=== PATIENT | female | born 2000 | race Caucasian/White ===

== ENCOUNTER 2023-01-19 10:05 | Emergency (ER) | payer OTHER ==
[2023-01-19] MEDS ORDERED: IBUPROFEN 400 MG TAB ONE (10:36)
[2023-01-19] MEDS ORDERED: CYCLOBENZAPRINE 10 MG TAB ONE (10:37)
[2023-01-19] MEDS ORDERED: IBUPROFEN 200 MG TAB PO ONE (10:37)
--- NOTE | 2023-01-19 11:06 | RAD REPORT ---
EXAM DESCRIPTION: RAD - Sacrum And Coccyx - 01/19/2023 10:34 am CLINICAL HISTORY: PAIN COMPARISON: No comparisons FINDINGS/IMPRESSION: No acute fracture. No malalignment. No significant focal degenerative changes.
--- NOTE | 2023-01-19 11:07 | RAD REPORT ---
EXAM DESCRIPTION: RAD - Hip Right 2 View - 01/19/2023 10:34 am CLINICAL HISTORY: PAIN COMPARISON: No comparisons FINDINGS: No acute fracture. No malalignment. No significant focal degenerative changes. IMPRESSION: No acute osseous abnormality involving the right hip.
--- NOTE | 2023-01-19 11:18 | EDPHYS ---
Physician Documentation [facility] Name: April Sharpe Age: 22 yrs Sex: Female : 2000 Arrival Date: 01/19/2023 Time: 10:05 Bed 11 Private MD: ED Physician Antoine Watson HPI: 01/19 10:09 This 22 yrs old Female presents to ER via Ambulatory with complaints of Fall Injury, jh7 Hip Pain, Leg Pain. 10:09 Details of fall: The patient fell from an upright position, while walking. Onset: The jh7 symptoms/episode began/occurred yesterday. Associated injuries: The patient sustained right hip and glute, painful injury. 22-year-old female states that she slipped and fell by the pool yesterday. Complains of right hip and sacrum pain shooting down her right leg. Able to ambulate with no difficulties.. Historical: - Allergies: 10:09 Toradol; ll1 10:09 Trileptal; ll1 - PMHx: 10:09 None; ll1 - PSHx: 10:09 R ovarian cyst SX; ll1 - Immunization history:: Adult Immunizations up to date. - Social history:: Smoking status: Reported history of juuling and/or vaping. ROS: 10:09 Constitutional: Negative for fever, chills, and weight loss, Eyes: Negative for injury, jh7 pain, redness, and discharge, Neck: Negative for injury, pain, and swelling, Cardiovascular: Negative for chest pain, palpitations, and edema, Respiratory: Negative for shortness of breath, cough, wheezing, and pleuritic chest pain, Back: Negative for injury and pain, Skin: Negative for injury, rash, and discoloration, Neuro: Negative for headache, weakness, numbness, tingling, and seizure. 10:09 MS/extremity: Positive for pain, tenderness, of the Right hip and glute. 10:09 All other systems are negative. Exam: 10:09 Constitutional: This is a well developed, well nourished patient who is awake, alert, jh7 and in no acute distress. Head/Face: Normocephalic, atraumatic. Neck: Trachea midline, no thyromegaly or masses palpated, and no cervical lymphadenopathy. Supple, full range of motion without nuchal rigidity, or vertebral point tenderness. No Meningismus. Cardiovascular: Regular rate and rhythm with a normal S1 and S2. No gallops, murmurs, or rubs. Normal PMI, no JVD. No pulse deficits. Respiratory: Lungs have equal breath sounds bilaterally, clear to auscultation and percussion. No rales, rhonchi or wheezes noted. No increased work of breathing, no retractions or nasal flaring. Abdomen/GI: Soft, non-tender, with normal bowel sounds. No distension or tympany. No guarding or rebound. No evidence of tenderness throughout. Back: No spinal tenderness. No costovertebral tenderness. Full range of motion. Skin: Warm, dry with normal turgor. Normal color with no rashes, no lesions, and no evidence of cellulitis. Neuro: Awake and alert, GCS 15, oriented to person, place, time, and situation. Motor strength 5/5 in all extremities. Sensory grossly intact. Normal gait. 10:09 Musculoskeletal/extremity: ROM: intact in all extremities, full active range of motion, Circulation is intact in all extremities. Sensation intact. Mild tenderness noted over the right iliac crest radiating down right leg. No obvious bruising or swelling noted.. Vital Signs: 10:20 BP 143 / 91; Pulse 85; Resp 16; Temp 98.6; Pulse Ox 99% ; Weight 68.04 kg; Height 5 ft. ll1 3 in. ; Pain 7/10; 11:27 BP 108 / 68; Pulse 80; Resp 15; Pulse Ox 100% ; jl7 10:20 Body Mass Index 26.57 (68.04 kg, 160.02 cm) ll1 10:20 Pain Scale: Adult ll1 MDM: 10:09 Patient medically screened. [facility] 11:17 Differential diagnosis: contusion, fracture, sprain. Data reviewed: vital signs, nurses [facility] notes, radiologic studies, plain films. I considered the following discharge prescriptions or medication management in the emergency department Medications were administered in the Emergency Department. See MAR. Counseling: I had a detailed discussion with the patient and/or guardian regarding: the historical points, exam findings, and any diagnostic results supporting the discharge/admit diagnosis, to return to the emergency department if symptoms worsen or persist or if there are any questions or concerns that arise at home. Response to treatment: the patient's symptoms have markedly improved after treatment. 01/19 10:18 Order name: XRAY Hip RIGHT 2 view; Complete Time: 11:13 7 01/19 10:18 Order name: XRAY Sacrum And Coccyx; Complete Time: 11:13 7 Administered Medications: 10:42 Drug: Ibuprofen PO 600 mg Route: PO; ll1 11:28 Follow up: Response: No adverse reaction; Pain is decreased jl7 10:42 Drug: Cyclobenzaprine PO 10 mg Route: PO; ll1 11:27 Follow up: Response: No adverse reaction; Pain is decreased jl7 Disposition Summary: 01/19/23 11:17 Discharge Ordered Location: Home [facility] Problem: new [facility] Symptoms: have improved [facility] Condition: Stable [facility] Diagnosis - Contusion of right hip [facility] Followup: [facility] - With: Private Physician - When: 2 - 3 days - Reason: Recheck today's complaints Discharge Instructions: - Discharge Summary Sheet [facility] - Contusion [facility] - Fall Prevention in the Home, Adult [facility] - Hip Pain [facility] Forms: - Work release form eb - Medication Reconciliation Form [facility] - Thank You Letter [facility] Prescriptions: - Naprosyn 500 mg Oral Tablet - take 1 tablet by ORAL route 2 times per day take with food; 30 tablet; Refills: [facility] 0, Product Selection Permitted - Zanaflex 4 mg Oral Tablet - take 1 tablet by ORAL route every 8 hours As needed; 20 tablet; Refills: 0, jh7 Product Selection Permitted Signatures: Dispatcher [employer] Ayan Gordon RN RN 1 Bridget Ruiz FNP FNP [facility] Curt Roberts RN jl7
--- NOTE | 2023-01-19 11:18 | ER ---
Nurse's Notes [facility] Name: April Sharpe Age: 22 yrs Sex: Female : 2000 Arrival Date: 01/19/2023 Time: 10:05 Bed 11 Private MD: Diagnosis: Contusion of right hip Presentation: 01/19 10:20 Chief complaint: Patient states: Slipped while getting into the pool yesterday around 2 ll1 PM. Coronavirus screen: Vaccine status: Patient reports receiving the 2nd dose of the covid vaccine. Client denies travel out of the [place] in the last 14 days. At this time, the client does not indicate any symptoms associated with coronavirus-19. Ebola Screen: Patient denies travel to an Ebola-affected area in the 21 days before illness onset. Initial Sepsis Screen: Does the patient meet any 2 criteria? No. Patient's initial sepsis screen is negative. Does the patient have a suspected source of infection? No. Patient's initial sepsis screen is negative. Risk Assessment: Do you want to hurt yourself or someone else? Patient reports no desire to harm self or others. Onset of symptoms was January 18, 2023. 10:20 Method Of Arrival: Ambulatory ll1 10:20 Acuity: MICHAEL 4 ll1 Historical: - Allergies: 10:09 Toradol; ll1 10:09 Trileptal; ll1 - PMHx: 10:09 None; ll1 - PSHx: 10:09 R ovarian cyst SX; ll1 - Immunization history:: Adult Immunizations up to date. - Social history:: Smoking status: Reported history of juuling and/or vaping. Screenin:27 [facility] ED Fall Risk Assessment (Adult) History of falling in the last 3 months, jl7 including since admission Yes- single mechanical fall (1 pt) Score/Fall Risk Level 0 - 2 = Low Risk Oriented to surroundings, Maintained a safe environment. Abuse screen: Denies threats or abuse. Denies injuries from another. Nutritional screening: No deficits noted. Tuberculosis screening: No symptoms or risk factors identified. Assessment: 10:42 Reassessment: No changes from previously documented assessment. Patient and/or family ll1 updated on plan of care and expected duration. Pain level reassessed. Patient is alert, oriented x 3, equal unlabored respirations, skin warm/dry/pink. Vital Signs: 10:20 BP 143 / 91; Pulse 85; Resp 16; Temp 98.6; Pulse Ox 99% ; Weight 68.04 kg; Height 5 ft. ll1 3 in. ; Pain 7/10; 11:27 BP 108 / 68; Pulse 80; Resp 15; Pulse Ox 100% ; jl7 10:20 Body Mass Index 26.57 (68.04 kg, 160.02 cm) ll1 10:20 Pain Scale: Adult 1 ED Course: 10:08 Patient arrived in ED. mr 10:09 Bridget Ruiz[facility] jh7 10:09 Antoine Watson MD is Attending Physician. jh7 10:12 Arm band placed on Patient placed in an exam room, on a stretcher. ll1 10:21 Triage completed. ll1 10:23 Ayan Heredia, YOSVANY is Primary Nurse. ll1 10:35 XRAY Hip RIGHT 2 view In Process Unspecified. EDMS 10:35 XRAY Sacrum And Coccyx In Process Unspecified. EDMS 11:27 Patient has correct armband on for positive identification. jl7 11:27 No provider procedures requiring assistance completed. Patient did not have IV access jl7 during this emergency room visit. Administered Medications: 10:42 Drug: Ibuprofen PO 600 mg Route: PO; 1 11:28 Follow up: Response: No adverse reaction; Pain is decreased jl7 10:42 Drug: Cyclobenzaprine PO 10 mg Route: PO; ll1 11:27 Follow up: Response: No adverse reaction; Pain is decreased jl7 Medication: 11:27 VIS not applicable for this client. jl7 Outcome: 11:17 Discharge ordered by . jh7 11:27 Discharged to home ambulatory. jl7 11:27 Condition: stable 11:27 Discharge instructions given to patient, Instructed on discharge instructions, follow up and referral plans. medication usage, Demonstrated understanding of instructions, follow-up care, medications, Prescriptions given X 2. 11:28 Patient left the ED. jl7 Signatures: Dispatcher [employer] EDOH Junior Miguelina RobertsCurt RN RN jl7 Ayan Heredia RN RN 1 Bridget Ruiz FNP [employer] [facility]
[2023-01-19 11:35] VITALS: TEMP 98.6
[2023-01-19 11:36] VITALS: BP 108/68; O2SAT 100
== END 2023-01-19 11:28 | disposition home or self-care (01) ==
LOC: ER 10:05
DX: S70.01XA Contusion of right hip, initial encounter (principal); Z88.5 Allergy status to narcotic agent; Z88.8 Allergy status to other drugs, medicaments and biological substances
CPT/HCPCS: 72220; 99283

== ENCOUNTER 2023-03-05 18:30 | Emergency (ER) | payer OTHER ==
--- NOTE | 2023-03-05 19:28 | EDPHYS ---
Physician Documentation [facility] Name: April Sharpe Age: 22 yrs Sex: Female : 2000 Arrival Date: 03/05/2023 Time: 18:30 Bed 13 Private MD: ED Physician Prince Escobar HPI: 03/05 19:25 This 22 yrs old Female presents to ER via Ambulatory with complaints of Rectal rn Bleeding, Rectal Pain. 19:25 The patient presents to the emergency department with bleeding from the rectum/anus, rn that is mild. Onset: The symptoms/episode began/occurred 1 year(s) ago. Modifying factors: The symptoms are alleviated by nothing, The symptoms are aggravated by bowel movement. Associate signs and symptoms: Pertinent positives: lower GI bleeding, Pertinent negatives: abdominal pain, fever. The patient has experienced similar episodes in the past. Pt reports light rectal bleeding and pain since 1 year ago. Spots when wipes and some discomfort, but goes away. NO abd pain. No fever. No trauma. . 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 - Social history:: Smoking status: Reported history of juuling and/or vaping. - Family history:: not pertinent. - Hospitalizations: : No recent hospitalization is reported. ROS: 19:25 Constitutional: Negative for fever, chills, and weight loss, Cardiovascular: Negative rn for chest pain, palpitations, and edema, Abdomen/GI: Negative for abdominal pain, nausea, vomiting, diarrhea, and constipation, + rectal bleeding Exam: 19:25 Constitutional: This is a well developed, well nourished patient who is awake, alert, rn and in no acute distress. Abdomen/GI: + external hemorrhoid, no active bleeding, no perianal swelling or open wounds Vital Signs: 18:52 BP 143 / 90; Pulse 101; Resp 18 S; Temp 97.1(TE); Pulse Ox 100% on R/A; aa5 MDM: 18:51 Patient medically screened. rn 19:25 Differential diagnosis: hemorrhoids. Differential diagnosis: fissure. Data reviewed: rn vital signs. Data reviewed: nurses notes, and as a result, I will discharge patient. Counseling: I had a detailed discussion with the patient and/or guardian regarding: the historical points, exam findings, and any diagnostic results supporting the discharge/admit diagnosis, the need for outpatient follow up, to return to the emergency department if symptoms worsen or persist or if there are any questions or concerns that arise at home. Special discussion: I discussed with the patient/guardian in detail that at this point there is no indication for admission to the hospital. It is understood, however, that if the symptoms persist or worsen the patient needs to return immediately for re-evaluation. Administered Medications: No medications were administered Disposition Summary: 03/05/23 19:27 Discharge Ordered Location: Home rn Problem: an ongoing problem rn Symptoms: are unchanged rn Condition: Stable rn Diagnosis - Other hemorrhoids rn Followup: rn - With: Private Physician - When: As needed - Reason: Recheck today's complaints, Re-evaluation by your physician Discharge Instructions: - Discharge Summary Sheet rn - High-Fiber Eating Plan rn - Hemorrhoids rn Forms: - Medication Reconciliation Form rn - Thank You Letter rn - Antibiotic ornamental iron erector - Prescription Opioid Use rn - Patient Portal Instructions rn Prescriptions: - Anusol-HC 2.5 % Topical cream with perineal applicator - apply 1 application by RECTAL route daily as needed for hemorrhoids; 1 packet; rn Refills: 0, Product Selection Permitted Signatures: Prince Escobar MD MD rn Calderon, Audri, RN RN aa5
--- NOTE | 2023-03-05 19:28 | ER ---
Nurse's Notes [facility] Name: April Sharpe Age: 22 yrs Sex: Female : 2000 Arrival Date: 03/05/2023 Time: 18:30 Bed 13 Private MD: Diagnosis: Other hemorrhoids Presentation: 03/05 18:52 Chief complaint: Patient states: "I've had blood when I poop for about a year now but aa5 today it bleed more than it normally does and I had pain". pt reports rectal pain. Coronavirus screen: At this time, the client does not indicate any symptoms associated with coronavirus-19. Ebola Screen: Patient denies travel to an Ebola-affected area in the 21 days before illness onset. Initial Sepsis Screen: Does the patient meet any 2 criteria? HR > 90 bpm. Does the patient have a suspected source of infection? No. Patient's initial sepsis screen is negative. Risk Assessment: Do you want to hurt yourself or someone else? Patient reports no desire to harm self or others. Onset of symptoms was 2021. 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 - Social history:: Smoking status: Reported history of juuling and/or vaping. - Family history:: not pertinent. - Hospitalizations: : No recent hospitalization is reported. Screenin:[address] [facility] ED Fall Risk Assessment (Adult) History of falling in the last 3 months, cm10 including since admission No falls in past 3 months (0 pts) Confusion or Disorientation No (0 pts) Intoxicated or Sedated No (0 pts) Impaired Gait No (0 pts) Mobility Assist Device Used No (0 pt) Altered Elimination No (0 pt) Score/Fall Risk Level 0 - 2 = Low Risk Oriented to surroundings, Maintained a safe environment. Abuse screen: Denies threats or abuse. Denies injuries from another. Nutritional screening: No deficits noted. Tuberculosis screening: No symptoms or risk factors identified. Assessment: 19:29 General: Appears in no apparent distress. comfortable, Behavior is calm, cooperative. cm10 Pain: Denies pain. Neuro: No deficits noted. Level of Consciousness is awake, alert, Oriented to person, place, time, situation. Cardiovascular: No deficits noted. Capillary refill < 3 seconds. Respiratory: No deficits noted. Airway is patent Respiratory effort is even, unlabored, Respiratory pattern is regular, symmetrical. GI: Reports hemorrhoids. Vital Signs: 18:52 BP 143 / 90; Pulse 101; Resp 18 S; Temp 97.1(TE); Pulse Ox 100% on R/A; aa5 ED Course: 18:32 Patient arrived in ED. am2 18:50 Prince Escobar MD is Attending Physician. rn 18:52 Arm band placed on. aa5 18:54 Triage completed. aa5 19:03 Echo Gallo, RN is Primary Nurse. 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 cm10 19:29 Patient did not have IV access during this emergency room visit. cm10 19:30 Patient has correct armband on for positive identification. Placed in gown. Call light cm10 in reach. Provided Education on: N/A. Administered Medications: No medications were administered Medication: 19:31 VIS not applicable for this client. cm10 Outcome: 19:27 Discharge ordered by . rn 19:31 Discharged to home ambulatory. cm10 19:31 Condition: good 19:31 Discharge instructions given to patient, Instructed on discharge instructions, follow up and referral plans. medication usage, Demonstrated understanding of instructions, follow-up care, medications, Prescriptions given X 1. 19:35 Patient left the ED. cm10 Signatures: Prince Escobar MD MD rn Calderon, Audri, RN RN aa5 Mariana Aguilar am2 Echo Gallo RN RN cm10
[2023-03-05 20:17] VITALS: BP 143/90; TEMP 97.1; O2SAT 100
== END 2023-03-05 19:35 | disposition home or self-care (01) ==
LOC: ER 18:30
DX: K64.8 Other hemorrhoids (principal); Z88.5 Allergy status to narcotic agent; Z88.8 Allergy status to other drugs, medicaments and biological substances

== ENCOUNTER → 2023-11-08 | Emergency (ER) | payer OTHER ==
[~2023-11-08] MED LIST: NA CHLORIDE 0.9% 1,000 ML ONE
--- OUTSIDE RECORDS SUMMARY | 2023-11-08 19:50 | XMS REPORT | Continuity of Care Document ---
Author Name Unknown Address [address] [facility] [address] [place] [address] [facility] thconnect Address [address] [facility] 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 Name Role Phone Dwain Henao Primary Care Physician [phone] KIARRA KURTZ Attending Clinician Unavailable Kiarra Kurtz MD Attending Clinician [phone] Gregorio Lambert MD Attending Clinician [phone] GREGORIO LAMBERT Attending Clinician Unavaileugene e GREGORIO LAMBERT Attending Clinician Unavailabl e Payers Payer Name Policy Type Policy Number Effective Date Expirati on Date Source Allergies, Adverse Reactions, Alerts Allergy Name Allergy Type Status Severity Reaction(s) Onset Date Inactive Date Treating Clinician Comments Source NO KNOWN ALLERGIE S Drug Class Active [facility] Social History Social Habit Start Date Stop Date Quantity Comments Source History of tobacco use Cigarette Smoker [facility] Tobacco use and exposure 2023-10-17 00:00:00 2023-10-17 00:00:00 Smokeless tobacco non-user [facility] Alcohol intake 2023-10-17 00:00:00 2023-10-17 00:00:00 Ex-drinker (finding) [facility] History of Social function 2023-10-17 00:00:00 2023-10-17 00:00:00 [facility] Sex Assigned At 2000 00:00:00 2000 00:00:00 [facility] Smoking Status Start Date Stop Date Source Tobacco smoking consumption unknown [facility] Ex-smoker 2023-10-17 00:00:00 2023-10-17 00:00:00 [facility] Medications Ordered Medication Name Filled Medication Name Start Date Stop Date Current Medication? Ordering Clinician Indication Dosage Frequency Signature (SIG) Comments Components Source diclofenac 75 mg EC tablet 08-22 00:00: 00 Yes [id number] 4109 75mg Take 1 tablet by mouth in the morning and 1 tablet in the evening. Take with meals. [facility] diclofenac 75 mg EC tablet 08-22 00:00: 00 Yes [id number] 4109 75mg Take 1 tablet by mouth in the morning and 1 tablet in the evening. Take with meals. [facility] diclofenac 75 mg EC tablet 08-22 00:00: 00 Yes [id number] 4109 75mg Take 1 tablet by mouth in the morning and 1 tablet in the evening. Take with meals. [facility] diclofenac 75 mg EC tablet 08-22 00:00: 00 Yes [id number] 4109 75mg Take 1 tablet by mouth in the morning and 1 tablet in the evening. Take with meals. [facility] diclofenac 75 mg EC tablet 08-22 00:00: 00 Yes [id number] 4109 75mg Take 1 tablet by mouth in the morning and 1 tablet in the evening. Take with meals. [facility] diclofenac 75 mg EC tablet 08-22 00:00: 00 Yes [id number] 4109 75mg Take 1 tablet by mouth in the morning and 1 tablet in the evening. Take with meals. [facility] DULoxetine 20 mg capsule 08-21 00:00: 00 Yes [facility] prazosin 1 mg capsule 08-21 00:00: 00 Yes [facility] DULoxetine 20 mg capsule 08-21 00:00: 00 Yes [facility] prazosin 1 mg capsule 0 08-21 00:00: 00 Yes [facility] DULoxetine 20 mg capsule 08-21 00:00: 00 Yes [facility] prazosin 1 mg capsule 2023-0 - 00:00: 00 Yes [facility] DULoxetine 20 mg capsule 0 - 00:00: 00 Yes [facility] prazosin 1 mg capsule 2023-0 08-21 00:00: 00 Yes [facility] DULoxetine 20 mg capsule 2023-0 08-21 00:00: 00 Yes [facility] prazosin 1 mg capsule 2023-0 08-21 00:00: 00 Yes [facility] DULoxetine 20 mg capsule 2023-0 08-21 00:00: 00 Yes [facility] prazosin 1 mg capsule 0 08-21 00:00: 00 Yes [facility] Vital Signs Vital Name Observation Time Observation Value Comments S emilia Body height 2023-10-17 19:06:00 162.6 cm [facility] Body height 2023-08-22 18:04:00 162.6 cm [facility] Body weight 2023-08-22 18:04:00 65.772 kg [facility] BMI 2023-08-22 18:04:00 24.89 kg/m2 [facility] Encounters Start Date/Time End Date/Time Encounter Type Admission Type Attending [facility] Care Facility Care Department Encounter ID Source 2023-11-06 09:43:05 2023-11-06 09:43:05 Outpatient [facility] SFA [id number] Madhu Clifford 2023-10-31 13:57:02 2023-10-31 13:57:02 Outpatient SFA SFA [id number] Madhu Clifford 2023-10-29 10:06:45 2023-10-29 10:06:45 Outpatient SFA SFA [id number] Madhu Clifford 2023-10-25 00:00:00 2023-10-25 00:00:00 Telephone Kiarra Kurtz [facility] [id number] [id number] [id number] [facility] 2023-10-22 10:10:49 2023-10-22 10:10:49 Outpatient SFA SFA [id number] Madhu Clifford 2023-10-17 13:30:00 2023-10-17 13:49:57 Outpatient R KIARRA KURTZ [facility] [id number] [facility] 2023-10-17 13:30:00 2023-10-17 13:49:57 [facility] [id number] [id number] [id number] [facility] 2023-10-15 10:09:39 2023-10-15 10:09:39 Outpatient SFA SFA [id number] Madhu Clifford 2023-10-10 09:53:42 2023-10-10 09:53:42 Outpatient SFA SFA [id number] Madhu Clifford 2023 10:18:33 2023 10:18:33 Outpatient SFA SFA [id number] Madhu Clifford 2023-10-03 16:47:39 2023-10-03 16:47:39 Outpatient SFA SFA [id number] Madhu Clifford 2023-10-01 10:03:39 2023-10-01 10:03:39 Outpatient SFA SFA [id number] Madhu Clifford 2023-09-18 15:55:24 2023-09-18 15:55:24 Outpatient SFA SFA [id number] Madhu Clifford 2023-09-17 10:05:10 2023-09-17 10:05:10 Outpatient SFA SFA [id number] Madhu Clifford 2023-09-12 07:59:20 2023-09-12 07:59:20 Outpatient SFA SFA [id number] Madhu Clifford 2023-08-22 12:04:19 2023-08-22 23:59:00 Hospital Encounter Gregorio Lambert [facility] [id number] [id number] [id number] [id number] [facility] 2023-08-22 11:45:00 2023-08-22 12:24:00 [facility] [id number] [id number] 4.2.7.2.686 [id number] [facility] 2023-08-22 11:45:00 2023-08-22 12:24:00 Outpatient R GREGORIO LAMBERT [facility] [id number] [facility] 2023-08-07 09:24:01 2023-08-07 09:24:01 Outpatient SFA SFA [id number] Madhu Clifford 2023-08-05 10:42:31 2023-08-05 10:42:31 Outpatient SFA SFA [id number] Madhu Clifford 2023-07-31 16:32:39 2023-07-31 16:32:39 Outpatient S[facility] [id number] Madhu Kristin Darrin Results Test Description Test Time Test Comments Results Result Co mments Source TSH, THIRD [id number] 05:14:45* Test Item Value Reference Range Interpretation Comme nts TSH, THIRD GENERATION (test code = 2821) 0.636 UIU/ML 0.400-4.100 UNLESS OTHERWISE INDICATED, ALL TESTING PERFORMED AT [facility] [address] [place] [address] SPORTS PHYSICIAN: KAILEY GRIMES M.D. CLIA NUMBER [id number] [facility] [place]. [id number] LIPID [id number] 05:03:30* Test Item Value Reference Range Interpretation Comme nts CHOLESTEROL (test code = 2210) 121 MG/DL <200 TRIGLYCERIDES (test code = 2232) 105 MG/DL <150 HDL CHOLESTEROL (test code = 2220) 47 MG/DL >39 CALC LDL CHOL (test code = 2237) 55 MG/DL <100 NOTE: CALCULATED LDL IS BASED ON JERRICA-GARCIA METHOD WHICHINCLUDES ADJUSTABLE TRIGLYCERIDE:VLDL CHOLESTEROL RATIO.THIS FACTOR VARIES BY MEASURED TRIGLYCERIDE AND NON-HDLCHOLESTEROL CONCENTRATIONS WITH INCREASED CALCULATED LDL SEENIN HIGHER TRIGLYCERIDE OR LOWER NON-HDL SPECIMENS. FOR MOREINFORMATION, SEE CLIENT ANNOUNCEMENT AT [email or web address] RISK RATIO LDL/HDL (test code = 2237) 1.17 RATIO <3.22 COMPREHENSIVE METABOLIC [id number] 05:03:30* Test Item Value Reference Range Interpretation Comme nts GLUCOSE (test code = 2216) 89 MG/DL 70-99 BUN (test code = 2207) 10 MG/DL 6-20 CREATININE (test code = 2213) 0.70 MG/DL 0.60-1.30 eGFR (2020 CKD-EPI) (test code = 89787) 125 ML/MIN/1.73 >60 CALC BUN/CREAT (test code = 2234) 14 RATIO 6-28 SODIUM (test code = 2230) 140 MEQ/L 133-146 POTASSIUM (test code = 2227) 4.5 MEQ/L 3.5-5.4 CHLORIDE (test code = 2214) 102 MEQ/L 95-107 CARBON DIOXIDE (test code = 2205) 24 MEQ/L 19-31 CALCIUM (test code = 2208) 10.1 MG/DL 8.5-10.5 PROTEIN, TOTAL (test code = 2228) 7.4 G/DL 6.1-8.3 ALBUMIN (test code = 2200) 4.7 G/DL 3.5-5.2 CALC GLOBULIN (test code = 2239) 2.7 G/DL 1.9-3.7 CALC A/G RATIO (test code = 2233) 1.7 RATIO 1.0-2.6 BILIRUBIN, TOTAL (test code = 2206) 0.6 MG/DL <=1.2 ALKALINE PHOSPHATASE (test code = 2203) 64 U/L 38-117 AST (test code = 2217) 14 U/L 9-40 ALT (test code = 2218) 14 U/L 5-40 HEMOGLOBIN [id number] 03:12:43* Test Item Value Reference Range Interpretation Comme nts HEMOGLOBIN A1c (test code = 83777) 5.3 % 4.2-5.6 CBC W/AUTO DIFF WITH [id number] 02:48:06* Test Item Value Reference Range Interpretation Comme nts WBC (test code = 1001) 7.1 K/UL 3.5-11.0 RBC (test code = 1002) 4.75 M/UL 3.80-5.40 HEMOGLOBIN (test code = 1003) 14.2 G/DL 11.5-15.5 HEMATOCRIT (test code = 1004) 42.7 % 34.0-45.0 MCV (test code = 1005) 89.9 fL 80.0-99.0 MCH (test code = 1006) 29.9 PG 25.0-33.0 MCHC (test code = 1007) 33.3 G/DL 31.0-36.0 RDW (test code = 1038) 11.8 % 11.5-15.0 NEUTROPHILS (test code = 1008) 71.8 % LYMPHOCYTES (test code = 1010) 21.4 % MONOCYTES (test code = 1011) 6.0 % EOSINOPHILS (test code = 1012) 0.4 % BASOPHILS (test code = 1013) 0.3 % IMMATURE GRANULOCYTES (test code = 1036) 0.1 % NUCLEATED RBCS (test code = 1065) 0.0 /100 WBC'S See_Comment [Automated Kaulia ge] The system which generated this result transmitted reference range: 0.0. The reference range was not used to interpret this result as normal/abnormal. PLATELET COUNT (test code = 1015) 350 K/UL 130-400 ABSOLUTE NEUTROPHILS (test code = 1066) 5.12 K/UL 1.50-7.50 ABSOLUTE LYMPHOCYTES (test code = 1067) 1.53 K/UL 1.00-4.00 ABSOLUTE MONOCYTES (test code = 1068) 0.43 K/UL 0.20-1.00 ABSOLUTE EOSINOPHILS (test code = 1040) 0.03 K/UL 0.00-0.50 ABSOLUTE BASOPHILS (test code = 1069) 0.02 K/UL 0.00-0.20 ABS IMMATURE GRANULOCYTES (test code = 1020) 0.01 K/UL 0.00-0.10 ABS NUCLEATED RBCS (test code = 20255) 0.00 K/UL 0.00-0.11 Notes Date/Time Note Provider Source 2023-10-25 09:37:10 [id number] 4XfRbgvsm4va 1B4PqYjjyXN78KV6Ca8/s9CcaszvGwON 1463-86-44O21:37:10 Contacted patient regarding results and recommendations. Patient verbalized understanding.Wood Arciniega RN 10/25/2023 9:36 AM 23354-6Keewmchtv encounter RmvyWZ5118-87-35D62:37:15Telepho ne encounter NoteTXT1.2.840.412359.1.13.104.2 .7.2.097965|[id number] e for patient hrvl42813-1FvrzTQVGRAGYBRCOfdorn delroy C-CDA narrative [id number] Collins RN[address] Ew[id number] 5557RFAOGTJIITOZXXINDDGTRF2148-2 3-08T09:37:151.2.840.189718.1.72 .3.15|1.2.840.232459.1.13.104.2. [id number] Wood Arciniega RN [facility] 2023-10-25 08:43:25 6FeAdDreNPy5zitJEz/t fedPaLBEJF+1 hvYF2sxm+RqjBcz3OF8UgwJFyP6QwN7N 7091-63-00G68:43:25 Patient is calling back for results. 23536-9Ulcdcihim encounter BjaiYT8292-81-31Y39:43:49Telepho ne encounter NoteTXT1.2.840.010901.1.13.104.2 .7.2.452814|[id number] e for patient viii07072-3TvlkUOLQYQIDIROKawyvi delroy C-CDA narrative [id number] S Hernandez[address] Kv[id number] [id number]T5024-5 -T08:43:491.2.840.273996.1.72 .3.15|1.2.840.573087.1.13.104.2. [id number] Maria E Lamar [facility]"
[2023-11-08 20:46] LABS: Absolute Lymphocytes (CBC) 2.1 K/uL (0.7-4.9); Absolute Monocytes 0.7 K/uL (0.1-1.3); Basophils % 0.4 % (0-1.3); Eosinophils % 0.5 % (0-4.4); Hematocrit 37.6 % (36.0-45.0); Hemoglobin 12.7 g/dL (12.0-15.0); Lymphocytes % 21.2 % (15.3-44.8); MCH 30.2 pg (27.0-35.0); MCHC 33.8 g/dL (32.0-36.0); MCV 89.5 fL (80-100); MPV 7.7 fL (7.6-11.3); Monocytes % 7.3 % (3.3-12.3); Neutrophils % 70.6 % (41.7-73.7); Platelets 286 thou/uL (152-406); RBC Red Blood Cell Count 4.21 M/uL (3.86-4.86); Red Cell Distribution Width 13.5 % (12.1-15.2)
--- NOTE | 2023-11-08 21:04 | RAD REPORT ---
EXAM DESCRIPTION: RAD - Chest Single View - 11/08/2023 8:57 pm CLINICAL HISTORY: CHEST PAIN Chest pain. COMPARISON: No comparisons FINDINGS: Portable technique limits examination quality. The lungs are grossly clear. The heart is normal in size. No displaced fractures. IMPRESSION: No acute intrathoracic process suspected.
[2023-11-08 21:06] LABS: ALT/SGPT 22 U/L (13-56); AST/SGOT 11 U/L (15-37); Albumin 3.5 g/dL (3.4-5.0); Alkaline Phosphatase 56 U/L (45-117); Anion Gap 8.7 mEq/L (5.0-15.0); BUN Blood Urea Nitrogen 13 mg/dL (7-18); Bicarbonate 26 mEq/L (21-32); Bilirubin Direct 0.1 mg/dL (0-0.2); Bilirubin Indirect, Calculated 0.3 mg/dL (0.2-0.8); Bilirubin Total 0.4 mg/dL (0.2-1.0); Globulin 3.5 g/dL (2.3-3.5); Glomerular Filtration Rate 125 ml/min (=/>90); Glucose Level 92 mg/dL (74-106); Magnesium 2.2 mg/dL (1.6-2.4); NT PRO-BNP 8 pg/mL (<125); Potassium 3.7 mEq/L (3.5-5.1); Sodium Level 139 mEq/L (136-145); Thyroid Stimulating Hormone 0.835 uIU/mL (0.358-3.740)
[2023-11-08 21:31] LABS: Troponin High Sensitivity < 3.0 pg/mL (<58.9)
--- NOTE | 2023-11-08 21:36 | EDPHYS ---
Physician Documentation [facility] Name: April Sharpe Age: 23 yrs Sex: Female : 2000 Arrival Date: 11/08/2023 Time: 19:47 Bed 11 Private MD: ED Physician Toni Bazzi HPI: 11/07 20:23 This 23 yrs old Female presents to ER via Ambulatory with complaints of Dizziness, rt Shortness Of Breath, Shaking. 20:23 Patient presents to the ED with "shakiness". States that this started yesterday. rt Patient states that she feels short of breath, "like she ran a marathon". Reports slight chest pressure associated with that. Denies current shortness of breath. States that she had similar symptoms when she was previously. LMP was about 30 days ago. Denies other acute complaints, symptoms are moderate in severity, no other aggravating or elevating factors.. 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 Flu vaccine is not up to date. - Social history:: Smoking status: Reported history of juuling and/or vaping. Patient uses alcohol, occasionally. Patient/guardian denies using street drugs. - Family history:: not pertinent. ROS: 20:23 Constitutional: Negative for fever, chills, and weight loss, Cardiovascular: Negative rt for chest pain, palpitations, and edema, Abdomen/GI: Negative for abdominal pain, nausea, vomiting, diarrhea, and constipation, MS/Extremity: Negative for injury and deformity, Skin: Negative for injury, rash, and discoloration, 20:23 Respiratory: Positive for shortness of breath, Negative for cough, 20:23 Neuro: Positive for dizziness, Negative for syncope, Exam: 20:23 Constitutional: This is a well developed, well nourished patient who is awake, alert, rt and in no acute distress. Head/Face: Normocephalic, atraumatic. Chest/axilla: Normal chest wall appearance and motion. Nontender with no deformity. No lesions are appreciated. Cardiovascular: Regular rate and rhythm with a normal S1 and S2. No gallops, murmurs, or rubs. Normal PMI, no JVD. No pulse deficits. Respiratory: Lungs have equal breath sounds bilaterally, clear to auscultation and percussion. No rales, rhonchi or wheezes noted. No increased work of breathing, no retractions or nasal flaring. Abdomen/GI: Soft, non-tender, with normal bowel sounds. No distension or tympany. No guarding or rebound. No evidence of tenderness throughout. Skin: Warm, dry with normal turgor. Normal color with no rashes, no lesions, and no evidence of cellulitis. MS/ Extremity: Pulses equal, no cyanosis. Neurovascular intact. Full, normal range of motion. Neuro: Awake and alert, GCS 15, oriented to person, place, time, and situation. Cranial nerves II-XII grossly intact. Motor strength 5/5 in all extremities. Sensory grossly intact. Cerebellar exam normal. Normal gait. 20:53 ECG was reviewed by the Attending Physician. rt Vital Signs: 20:07 BP 118 / 80; Pulse 72; Resp 15 S; Temp 97.9(TE); Pulse Ox 100% on R/A; Weight 63.5 kg lg3 (R); Height 5 ft. 4 in. (R); Pain 0/10; 21:01 BP 128 / 74; Pulse 74; Resp 16; Pulse Ox 100% on R/A; mb9 20:07 Body Mass Index 24.03 (63.50 kg, 162.56 cm) lg3 20:07 Pain Scale: Adult lg3 MDM: 20:16 Patient medically screened. rt 21:36 Differential diagnosis: Dehydration, , dysrhythmia, viral syndrome. Data rt reviewed: vital signs, nurses notes, lab test result(s), EKG, radiologic studies. Independent interpretation of the following test(s) in the Emergency Department X-Ray: My interpretation is No consolidation seen on interpretation of x-ray images. Counseling: I had a detailed discussion with the patient and/or guardian regarding the historical points, exam findings, and any diagnostic results supporting the discharge/admit diagnosis, lab results, radiology results, the need for outpatient follow up, to return to the emergency department if symptoms worsen or persist or if there are any questions or concerns that arise at home. Response to treatment: the patient's symptoms have markedly improved after treatment. 11/07 20:20 Order name: Basic Metabolic Panel; Complete Time: :32 rt 11/07 20:20 Order name: CBC with Diff; Complete Time: : rt 11/07 20:20 Order name: LFT's; Complete Time: : rt 11/07 20:20 Order name: Magnesium; Complete Time: : rt 11/07 20:20 Order name: NT PRO-BNP; Complete Time: : rt 11/07 20:20 Order name: Troponin HS; Complete Time: : rt 11/07 20:20 Order name: TSH; Complete Time: : rt 11/07 20:20 Order name: Test, Serum; Complete Time: 21: rt 11/07 20:20 Order name: XRAY Chest (1 view); Complete Time: 21: rt 11/07 20:20 Order name: EKG; Complete Time: 20: rt 11/07 20:20 Order name: Cardiac monitoring; Complete Time: 20:35 rt 11/07 20:20 Order name: EKG - Nurse/Tech; Complete Time: 20:35 rt 11/07 20:20 Order name: IV Saline Lock; Complete Time: 20:35 rt 11/07 20:20 Order name: Labs collected and sent; Complete Time: 20:35 rt 11/07 20:20 Order name: O2 Per Protocol; Complete Time: 20: rt 11/07 20:20 Order name: O2 Sat Monitoring; Complete Time: 20: rt EC:53 Rate is 65 beats/min. Rhythm is regular, Normal Sinus Rhythm with No ectopy. QRS [place] rt is Normal. SD interval is normal. QRS interval is normal. QT interval is normal. No Q waves. T waves are Normal. No ST changes noted. Interpreted by me. Administered Medications: 20:35 Drug: NS 0.9% IV 1000 ml IV at 1 bolus Per protocol; 1000 mL bolus Route: IV; Rate: 1 mb9 bolus; Site: right antecubital; 21:27 Follow up: Response: No adverse reaction; IV Status: Completed infusion mb9 Disposition Summary: 11/08/23 21:35 Discharge Ordered Notes: Location: Home rt Problem: new rt Symptoms: have improved rt Condition: Stable rt Diagnosis - Dehydration rt Followup: rt - With: Private Physician - When: 2 - 3 days - Reason: Discharge Instructions: - Discharge Summary Sheet rt - Dehydration, Adult rt Forms: - Medication Reconciliation Form rt - Thank You Letter rt - Antibiotic Education rt - Prescription Opioid Use rt - Patient Portal Instructions rt - Leadership Thank You Letter rt Signatures: Dispatcher [employer] Ann Fajardo RN RN [id number] Miguelina Shukla RN RN mb9 Toni Bazzi MD MD rt
--- NOTE | 2023-11-08 21:36 | ER ---
Nurse's Notes [facility] Name: April Sharpe Age: 23 yrs Sex: Female : 2000 Arrival Date: 11/08/2023 Time: 19:47 Bed 11 Private MD: Diagnosis: Dehydration Presentation: 11/07 20:07 Chief complaint: Patient states: lightheaded, dizzy, shaky, SOB X1 day. denies pain, lg3 N/V/D. Coronavirus screen: Client denies travel out of the [place] in the last 14 days. At this time, the client does not indicate any symptoms associated with coronavirus-19. Ebola Screen: No symptoms or risks identified at this time. Initial Sepsis Screen: Does the patient meet any 2 criteria? No. Patient's initial sepsis screen is negative. Does the patient have a suspected source of infection? No. Patient's initial sepsis screen is negative. Risk Assessment: Do you want to hurt yourself or someone else? Patient reports no desire to harm self or others. Onset of symptoms was November 07, 2023. 20:07 Method Of Arrival: Ambulatory lg3 20:07 Acuity: MICHAEL 3 lg3 Triage Assessment: 20:10 General: Appears in no apparent distress. comfortable, Behavior is calm, cooperative. lg3 Pain: Denies pain. EENT: No deficits noted. Neuro: Jaimes Agitation-Sedation Scale (RASS): 0 - Alert and Calm Level of Consciousness is awake, alert, obeys commands, Oriented to person, place, time, situation, Reports dizziness, weakness. Cardiovascular: No deficits noted. Reports fatigue, lightheadedness, shortness of breath, Heart tones S1 S2 present Capillary refill < 3 seconds Clubbing of nail beds is absent JVD is absent Patient's skin is warm and dry. Respiratory: No deficits noted. Reports shortness of breath Airway is patent Trachea midline Respiratory effort is even, unlabored, Respiratory pattern is regular, symmetrical, Breath sounds are clear bilaterally. Onset: The symptoms/episode began/occurred yesterday, the patient has mild shortness of breath. GI: No deficits noted. No signs and/or symptoms were reported involving the gastrointestinal system. : No deficits noted. No signs and/or symptoms were reported regarding the genitourinary system. Derm: No deficits noted. No signs and/or symptoms reported regarding the dermatologic system. Skin is intact, is healthy with good turgor, Skin is dry, Skin is normal, Skin temperature is warm. Musculoskeletal: No deficits noted. Circulation, motion, and sensation intact. Range of motion: intact in all extremities. HOG RIBBER: 20:10 LMP 10/08/2023, unknown lg3 Historical: - Allergies: 20:08 Toradol; lg3 20:08 Trileptal; lg3 - Home Meds: 20:08 prazosin 1 mg oral capsule daily [Active]; duloxetine 30 mg oral Capsule, Delayed lg3 Release Sprinkle daily [Active]; - PMHx: 20:08 headache; Anxiety; Depressive disorder; nightmares; lg3 - PSHx: 20:08 right ovarian repair; lg3 20:10 Tonsillectomy; Adenoid excision; lg3 - Immunization history:: Adult Immunizations up to date, Client reports having NOT received the Covid vaccine. Flu vaccine is not up to date. - Social history:: Smoking status: Reported history of juuling and/or vaping. Patient uses alcohol, occasionally. Patient/guardian denies using street drugs. - Family history:: not pertinent. Screenin:17 [facility] ED Fall Risk Assessment (Adult) History of falling in the last 3 months, mb9 including since admission No falls in past 3 months (0 pts) Confusion or Disorientation No (0 pts) Intoxicated or Sedated No (0 pts) Impaired Gait No (0 pts) Mobility Assist Device Used No (0 pt) Altered Elimination No (0 pt) Score/Fall Risk Level 0 - 2 = Low Risk Oriented to surroundings, Maintained a safe environment, Educated pt \T\ family on fall prevention, incl call for assistance when getting out of bed. Abuse screen: Denies threats or abuse. Nutritional screening: No deficits noted. Tuberculosis screening: No symptoms or risk factors identified. Assessment: 20:35 General: Appears in no apparent distress. Behavior is calm, cooperative. Pain: Denies mb9 pain. Neuro: Jaimes Agitation-Sedation Scale (RASS): 0 - Alert and Calm Level of Consciousness is awake, alert, obeys commands, Oriented to person, place, time, situation, Appropriate for age Reports dizziness. Cardiovascular: Heart tones S1 S2 present Patient's skin is warm and dry. Rhythm is regular. Respiratory: Reports shortness of breath Airway is patent Respiratory effort is even, unlabored, Respiratory pattern is regular, symmetrical, Breath sounds are clear bilaterally. GI: Abdomen is flat, non-distended, Bowel sounds present X 4 quads. Abd is soft and non tender X 4 quads. Reports nausea. : No signs and/or symptoms were reported regarding the genitourinary system. EENT: No signs and/or symptoms were reported regarding the EENT system. Derm: Skin is pink, warm \T\ dry. Musculoskeletal: Range of motion: intact in all extremities. 21:28 Reassessment: Patient and/or family updated on plan of care and expected duration. Pain mb9 level reassessed. Patient is alert, oriented x 3, equal unlabored respirations, skin warm/dry/pink. Patient states feeling better. Patient states symptoms have improved. Vital Signs: 20:07 BP 118 / 80; Pulse 72; Resp 15 S; Temp 97.9(TE); Pulse Ox 100% on R/A; Weight 63.5 kg lg3 (R); Height 5 ft. 4 in. (R); Pain 0/10; 21:01 BP 128 / 74; Pulse 74; Resp 16; Pulse Ox 100% on R/A; mb9 20:07 Body Mass Index 24.03 (63.50 kg, 162.56 cm) lg3 20:07 Pain Scale: Adult lg3 ED Course: 19:49 Patient arrived in ED. mr 19:58 Toni Bazzi MD is Attending Physician. rt 20:08 Triage completed. lg3 20:10 Arm band placed on right wrist. lg3 20:16 Miguelina Shukla, YOSVANY is Primary Nurse. mb9 20:17 Placed in gown. Bed in low position. Call light in reach. Side rails up X 1. Provided mb9 Education on: press call light if needing something. Client placed on continuous cardiac and pulse oximetry monitoring. NIBP monitoring applied. cafeteria monitor on. 20:17 No provider procedures requiring assistance completed. mb9 20:35 Test, Serum Sent. mb9 20:35 Basic Metabolic Panel Sent. mb9 20:35 CBC with Diff Sent. mb9 20:35 LFT's Sent. mb9 20:35 Magnesium Sent. mb9 20:35 NT PRO-BNP Sent. mb9 20:35 Troponin HS Sent. mb9 20:35 Inserted saline lock: 18 gauge in right antecubital area, using aseptic technique. mb9 20:36 EKG done, by ED staff, reviewed by Toni Bazzi MD. mb9 20:37 Door closed. Noise minimized. Warm blanket given. mb9 20:37 Initial lab(s) drawn, by me, sent to lab. Thermoregulation: warm blanket given to mb9 patient. 20:43 One-on-one care X 15 minutes. mb9 20:59 XRAY Chest (1 view) In Process Unspecified. EDMS 21:28 Assisted to bathroom. mb9 21:36 IV discontinued, intact, bleeding controlled, No redness/swelling at site. Pressure mb9 dressing applied. Administered Medications: 20:35 Drug: NS 0.9% IV 1000 ml IV at 1 bolus Per protocol; 1000 mL bolus Route: IV; Rate: 1 mb9 bolus; Site: right antecubital; 21:27 Follow up: Response: No adverse reaction; IV Status: Completed infusion mb9 Medication: 20:17 VIS not applicable for this client. mb9 Outcome: 21:35 Discharge ordered by MD. rt 21:37 Discharged to home ambulatory, mb9 21:37 Condition: stable 21:37 Discharge instructions given to patient, Instructed on discharge instructions, follow up and referral plans. Demonstrated understanding of instructions, follow-up care, 21:37 Patient left the ED. mb9 Signatures: Dispatcher [employer] EDAR Junior Miguelina, Reg Reg Ann Basilio, RN RN lg3 Miguelina Shukla, RN RN mb9 Toni Bazzi MD MD rt Corrections: (The following items were deleted from the chart) 20:12 20:07 BP 130 / 86; Pulse 72bpm; Resp 15bpm; Spontaneous; Pulse Ox 100% RA; Temp 97.9F lg3 Temporal; 63.5 kg Reported; Height 5 ft. 4 in. Reported; BMI: 24.0; Pain 0/10, Adult; lg3
[2023-11-08 21:59] VITALS: BP 128/74; TEMP 97.9; O2SAT 100
--- NOTE | 2023-11-11 14:23 | EKG ---
Test Date: 2023-11-08 Test Time: 19:49:19 Shipyard Painter: FANI MEASUREMENT RESULTS: Intervals: Rate: 65 NC: 148 QRSD: 76 QT: 394 QTc: 409 [place]: P: 66 NC: 148 QRS: 78 T: 77 INTERPRETIVE STATEMENTS: Normal sinus rhythm Normal ECG No previous ECG available for comparison Electronically Signed On 11-11-23 14:15:38 CDT by Brian Gomez
== END ==
LOC: ER 19:47
DX: E86.0 Dehydration (principal); Z88.5 Allergy status to narcotic agent; Z88.8 Allergy status to other drugs, medicaments and biological substances; Z28.310 Unvaccinated for COVID-19
CPT/HCPCS: 85025; 80048; 36415; 83735; 84703; 80076; 84443; 84484; 83880; 71045; 96360; 99285; J7030; 93005

== ENCOUNTER 2023-12-27 09:46 | Emergency (ER) | payer OTHER ==
--- OUTSIDE RECORDS SUMMARY | 2023-12-27 09:48 | XMS REPORT | Continuity of Care Document ---
Author Name Unknown Address [address] [place] [address] [facility] thconnect Address [address] [place] [address] Care Team Providers Care Efficiency Expert Name Role Phone Dwain Henao Primary Care Physician [phone] KIARRA KURTZ Attending Clinician Unavailable Kiarra Kurtz MD Attending Clinician [phone] Gregorio Lambert MD Attending Clinician [phone] GREGORIO LAMBERT Attending Clinician Unavaileugene e GREGORIO LAMBERT Attending Clinician Unavaileugene e Payers Payer Name Policy Type Policy Number Effective Date Expirati on Date Source Allergies, Adverse Reactions, Alerts Allergy Name Allergy Type Status Severity Reaction(s) Onset Date Inactive Date Treating Clinician Comments Source NO KNOWN ALLERGIE S Drug Class Active [facility] Social History Social Habit Start Date Stop Date Quantity Comments Source History of tobacco use Cigarette Smoker [facility] Tobacco use and exposure 2023-10-17 00:00:00 2023-10-17 00:00:00 Smokeless tobacco non-user [facility] Alcohol intake 2023-10-17 00:00:00 2023-10-17 00:00:00 Ex-drinker (finding) [facility] History of Social function 2023-10-17 00:00:00 2023-10-17 00:00:00 [facility] Sex Assigned At 2000 00:00:00 2000 00:00:00 [facility] Smoking Status Start Date Stop Date Source Tobacco smoking consumption unknown [facility] Ex-smoker 2023-10-17 00:00:00 2023-10-17 00:00:00 [facility] Medications Ordered Medication Name Filled Medication Name Start Date Stop Date Current Medication? Ordering Clinician Indication Dosage Frequency Signature (SIG) Comments Components Source diclofenac 75 mg EC tablet 08-22 00:00: 00 Yes [id number] 75mg Take 1 tablet by mouth in the morning and 1 tablet in the evening. Take with meals. [facility] DULoxetine 20 mg capsule 08-21 00:00: 00 Yes [facility] prazosin 1 mg capsule 08-21 00:00: 00 Yes [facility] Vital Signs Vital Name Observation Time Observation Value Comments S ourbrittani Body height 2023-10-17 19:06:00 162.6 cm [facility] Body height 2023-08-22 18:04:00 162.6 cm [facility] Body weight 2023-08-22 18:04:00 65.772 kg [facility] BMI 2023-08-22 18:04:00 24.89 kg/m2 [facility] Encounters Start Date/Time End Date/Time Encounter Type Admission Type Attending [facility] Care Facility Care Department Encounter ID Source 2023-12-24 10:02:20 2023-12-24 10:02:20 Outpatient S[facility] [id number] Madhu Clifford 2023-12-19 15:36:54 2023-12-19 15:36:54 Outpatient SFA SFA [id number] Madhu Foster Darrin 2023-12-17 10:02:21 2023-12-17 10:02:21 Outpatient SFA SFA [id number] Madhu Foster Darrin 2023-12-12 12:58:56 2023-12-12 12:58:56 Outpatient SFA SFA [id number] Madhu Clifford 2023-12-11 14:26:48 2023-12-11 14:26:48 Outpatient SFA SFA [id number] Madhu Clifford 2023-12-04 11:19:44 2023-12-04 11:19:44 Outpatient SFA SFA [id number] Madhu Clifford 2023-12-03 10:06:00 2023-12-03 10:06:00 Outpatient SFA SFA [id number] Madhu Clifford 2023-11-19 10:03:45 2023-11-19 10:03:45 Outpatient SFA SFA [id number] Madhu Clifford 2023-11-12 10:17:04 2023-11-12 10:17:04 Outpatient SFA SFA [id number] Madhu Clifford 2023-11-06 09:43:05 2023-11-06 09:43:05 Outpatient SFA SFA [id number] Madhu Clifford 2023-10-31 13:57:02 2023-10-31 13:57:02 Outpatient SFA SFA [id number] Madhu Clifford 2023-10-29 10:06:45 2023-10-29 10:06:45 Outpatient SFA SFA [id number] Madhu Clifford 2023-10-25 00:00:00 2023-10-25 00:00:00 Telephone AdniyahKiarra Arnel [id number] [id number] [facility] 2023-10-22 10:10:49 2023-10-22 10:10:49 Outpatient SFA [facility] [id number] Madhu Clifford 2023-10-17 13:30:00 2023-10-17 13:49:57 Outpatient R ADKIARRA BENNETT [facility] [id number] [facility] 2023-10-17 13:30:00 2023-10-17 13:49:57 Office Visit AdKiarra bennett [id number] [id number] [id number] [id number] [facility] 2023-10-15 10:09:39 2023-10-15 10:09:39 Outpatient SFA SFA [id number] Madhu Clifford 2023-10-10 09:53:42 2023-10-10 09:53:42 Outpatient SFA SFA [id number] Madhu Clifford 2023 10:18:33 2023 10:18:33 Outpatient SFA SFA [id number] Madhu Clifford 2023-10-03 16:47:39 2023-10-03 16:47:39 Outpatient SFA SFA [id number] Madhu Clifford 2023-10-01 10:03:39 2023-10-01 10:03:39 Outpatient SFA SFA [id number] Madhu Clifford 2023-09-18 15:55:24 2023-09-18 15:55:24 Outpatient SFA SFA [id number] Madhu Clifford 2023-09-17 10:05:10 2023-09-17 10:05:10 Outpatient SFA SFA [id number] Madhu Clifford 2023-09-12 07:59:20 2023-09-12 07:59:20 Outpatient SFA SFA [id number] Madhu Clifford 2023-08-22 12:04:19 2023-08-22 23:59:00 Hospital Encounter Gregorio Lambert [facility] [id number] [id number] [id number] [id number] [facility] 2023-08-22 11:45:00 2023-08-22 12:24:00 Office Visit Gregorio Lambert [facility] [id number] [id number] [id number] [id number] [facility] 2023-08-22 11:45:00 2023-08-22 12:24:00 Outpatient [facility] [id number] [facility] 2023-08-07 09:24:01 2023-08-07 09:24:01 Outpatient SFA [facility] [id number] Madhu Clifford 2023-08-05 10:42:31 2023-08-05 10:42:31 Outpatient [facility] [id number] Madhu Clifford 2023-07-31 16:32:39 2023-07-31 16:32:39 Outpatient [facility] [id number] Madhu Clifford Results Test Description Test Time Test Comments Results Result Co mments Source TSH, THIRD [id number] 05:14:45* Test Item Value Reference Range Interpretation Comme nts TSH, THIRD GENERATION (test code = 2821) 0.636 UIU/ML 0.400-4.100 UNLESS OTHERWISE INDICATED, ALL TESTING PERFORMED AT [facility] [address] [place] [address] SPORTS BETTING MANAGER: KAILEY GRIMES M.D. CLIA NUMBER [id number] [place]. [id number] LIPID [id number] 05:03:30* Test Item Value Reference Range Interpretation [...] SPECIMENS. FOR MOREINFORMATION, SEE CLIENT ANNOUNCEMENT AT [email or web address] RISK RATIO LDL/HDL (test code = 2238) 1.17 RATIO <3.22 COMPREHENSIVE METABOLIC [id number] 05:03:30* Test Item Value Reference Range Interpretation Comme nts GLUCOSE (test code = 2217) 89 MG/DL 70-99 BUN (test code = 2208) 10 MG/DL 6-20 CREATININE (test code = 2214) 0.70 MG/DL 0.60-1.30 eGFR (2020 CKD-EPI) (test code = 40695) 125 ML/MIN/1.73 >60 CALC BUN/CREAT (test code [...] code = 2218) 14 U/L 5-40 HEMOGLOBIN [id number] 03:12:43* Test Item Value Reference Range Interpretation Comme nts HEMOGLOBIN A1c (test code = 13094) 5.3 % 4.2-5.6 CBC W/AUTO DIFF WITH [id number] 02:48:06* Test Item Value Reference Range Interpretation [...] = 1065) 0.0 /100 WBC'S See_Comment [Automated messa ge] The system which generated this result [...] 0.00-0.10 ABS NUCLEATED RBCS (test code = 62720) 0.00 K/UL 0.00-0.11 Notes Date/Time Note Provider Source 2023-10-25 09:37:10 1T8otmhCFl7PSEM25F5y 2PhElbvxs2my 8H3FoDzlwSS92WN8Rc5/c1DcqxuuGjWJ 3439-50-75N54:37:10 Contacted patient regarding results and recommendations. Patient verbalized understanding.Wood Arciniega RN 10/25/2023 9:36 AM 47189-3Stcykhsif encounter CpbiMZ6585-81-68I93:37:15Telepho ne encounter NoteTXT1.2.840.332040.1.13.104.2 .7.2.937396|[id number] e for patient tnzd90890-0WcbhJPEDHBTHUELJtkdaa delroy C-CDA narrative [id number] Collins [address] 9646TWRGVOUKVGYYVSKJJHOOVH7967-0 09:37:151.2.840.972165.1.72 .3.15|1.2.840.824144.1.13.104.2. 7.2.727879_[id number] Wood Arciniega [facility] 2023-10-25 08:43:25 6BzLoLqmCHj0nezHLi/t fedPaLBEJF+1 vdBC9lie+WamNdx8CR3OmcQOpK0XxO3K 8320-48-44Z37:43:25 Patient is calling back for results. 80057-9Limjfmtfp encounter VxfnHB2801-42-10V06:43:49Telepho ne encounter NoteTXT1.2.840.707268.1.13.104.2 .7.2.759689|[id number] e for patient lxdl07493-1DggsPCLQPNUMFNXNddkwn delroy C-CDA narrative [id number] S Hernandez[address] 5748BKHWVJLWSSGWSHADAPLTPH9953-6 08:43:491.2.840.828785.1.72 .3.15|1.2.840.421301.1.13.104.2. [id number] Maria E Lamar [facility]"
--- NOTE | 2023-12-27 11:01 | EDPHYS ---
Physician Documentation [facility] Name: April Sharpe Age: 23 yrs Sex: Female : 2000 Arrival Date: 12/27/2023 Time: 09:46 Bed 20 Private MD: ED Physician Marvin Zimmerman HPI: 12/26 10:05 This 23 yrs old Female presents to ER via Ambulatory with complaints of Knee ec2 Pain. 10:05 Patient arrives today for evaluation of a left knee pain. Patient reports that she is ec2 having pain and discomfort with weightbearing. Patient reports that the knee has been giving out on her and she has had falls from this. Patient reports no fall prior to the onset of the pain. Patient reports no other concerns, no swellings or erythema. . Historical: - Allergies: 10:00 Toradol; hb 10:00 Trileptal; hb - Home Meds: 10:00 duloxetine 30 mg Oral Capsule daily [Active]; prazosin 1 mg Oral capsule daily [Active];hb - PMHx: 10:00 Anxiety; headache; nightmares; Bipolar disorder; PTSD; hb - PSHx: 10:00 Adenoid excision; right ovarian repair; Tonsillectomy; hb - Immunization history:: Adult Immunizations up to date. - Infectious Disease History:: Denies. - Social history:: Smoking status: Reported history of juuling and/or vaping. ROS: 10:05 Constitutional: as per hpi ec2 Exam: 10:05 Constitutional: GEN: NAD Head: atraumatic Eyes: EOMI Ears: External ears are ec2 normal. CV: regular rate LUNGS: no respiratory distress ABD: non-distended SKIN: no evidence of rashes MSK: Left knee with good range of motion, no ecchymosis, no erythema, no knee effusion. Intact distal neurovascular status NEURO: moves all extremities equally Vital Signs: 09:59 BP 119 / 70; Pulse 80; Resp 16; Temp 98.3(O); Pulse Ox 99% on R/A; Weight 63.5 kg; hb Height 5 ft. 4 in. ; Pain 8/10; 10:55 BP 110 / 72; Pulse 79; Resp 16 S; Pulse Ox 99% on R/A; kc6 09:59 Body Mass Index 24.03 (63.50 kg, 162.56 cm) hb 09:59 Pain Scale: Adult hb MDM: 10:01 Patient medically screened. ec2 10:06 Data reviewed: vital signs. ED course: Patient arrives today for evaluation of left ec2 knee pain. Examination remarkable for knee findings as above. Will obtain radiograph of the knee. Evaluating for bony fracture, ligamentous injury. Will place patient in knee immobilizer as well.. Administered Medications: No medications were administered Disposition Summary: 12/27/23 11:01 Discharge Ordered Notes: Location: Home ec2 Condition: Stable ec2 Diagnosis - Pain in left knee ec2 Followup: ec2 - With: Frank Garcia MD - When: - Reason: Recheck today's complaints Discharge Instructions: - Discharge Summary Sheet ec2 - Acute Knee Pain, Adult ec2 Forms: - Medication Reconciliation Form ec2 - Antibiotic Education ec2 - Prescription Opioid Use ec2 - Patient Portal Instructions ec2 - Leadership Thank You Letter ec2 Prescriptions: - methocarbamol 500 mg Oral tablet - take 2 tablets ORAL route 4 times per day; 15 tablet; Refills: 0, Product ec2 Selection Permitted Signatures: Dispatcher [employer] EDMS Mishel Thibodeaux RN RN hb Corral, Edwin, MD MD ec2 Corrections: (The following items were deleted from the chart) 10:00 10:00 PMHx: depressive disorder; hb hb 10:56 10:04 Knee Immobilizer ordered. ec2 kc6
--- NOTE | 2023-12-27 11:01 | ER ---
Nurse's Notes [facility] Name: April Sharpe Age: 23 yrs Sex: Female : 2000 Arrival Date: 12/27/2023 Time: 09:46 Bed 20 Private MD: Diagnosis: Pain in left knee Presentation: 12/26 09:59 Chief complaint: Left knee pain and numbness from knee to foot x 2 days. Coronavirus hb screen: At this time, the client does not indicate any symptoms associated with coronavirus-19. Ebola Screen: No symptoms or risks identified at this time. Initial Sepsis Screen: Does the patient meet any 2 criteria? No. Patient's initial sepsis screen is negative. Does the patient have a suspected source of infection? No. Patient's initial sepsis screen is negative. Risk Assessment: Do you want to hurt yourself or someone else? Patient reports no desire to harm self or others. Onset of symptoms was December 26, 2023. 09:59 Method Of Arrival: Ambulatory hb 09:59 Acuity: MICHAEL 4 hb Triage Assessment: 10:00 General: Appears in no apparent distress. Behavior is calm, cooperative. Pain: Pain hb currently is 8 out of 10 on a pain scale. Neuro: Level of Consciousness is awake, alert, obeys commands, Oriented to person, place, time, situation. Cardiovascular: Patient's skin is warm and dry. Respiratory: Respiratory effort is even, unlabored, Respiratory pattern is regular, symmetrical. Musculoskeletal: Reports left knee pain. Historical: - Allergies: 10:00 Toradol; hb 10:00 Trileptal; hb - Home Meds: 10:00 duloxetine 30 mg Oral Capsule daily [Active]; prazosin 1 mg Oral capsule daily [Active];hb - PMHx: 10:00 Anxiety; headache; nightmares; Bipolar disorder; PTSD; hb - PSHx: 10:00 Adenoid excision; right ovarian repair; Tonsillectomy; hb - Immunization history:: Adult Immunizations up to date. - Infectious Disease History:: Denies. - Social history:: Smoking status: Reported history of juuling and/or vaping. Screenin:03 [facility] ED Fall Risk Assessment (Adult) History of falling in the last 3 months, kc6 including since admission No falls in past 3 months (0 pts) Confusion or Disorientation No (0 pts) Intoxicated or Sedated No (0 pts) Impaired Gait No (0 pts) Mobility Assist Device Used No (0 pt) Altered Elimination No (0 pt) Score/Fall Risk Level 0 - 2 = Low Risk. Abuse screen: Denies threats or abuse. Denies injuries from another. Nutritional screening: No deficits noted. Tuberculosis screening: No symptoms or risk factors identified. Assessment: 10:04 General: Appears in no apparent distress. comfortable, well groomed, well developed, kc6 Behavior is calm, cooperative, appropriate for age. Pain: Complains of pain in left knee. Neuro: Level of Consciousness is awake, alert, obeys commands, Oriented to person, place, time, situation, Appropriate for age Reports numbness in left foot and left knee. Cardiovascular: Capillary refill < 3 seconds. Respiratory: Airway is patent Trachea midline Respiratory effort is even, unlabored, Respiratory pattern is regular, symmetrical. GI: No signs and/or symptoms were reported involving the gastrointestinal system. : No signs and/or symptoms were reported regarding the genitourinary system. EENT: No signs and/or symptoms were reported regarding the EENT system. Derm: No signs and/or symptoms reported regarding the dermatologic system. Skin is intact, is healthy with good turgor, Skin is pink, warm \\T\\ dry. Musculoskeletal: No signs and/or symptoms reported regarding the musculoskeletal system. Circulation, motion, and sensation intact. Capillary refill < 3 seconds, Range of motion: intact in all extremities. 10:56 Reassessment: PT REFUSING KNEE IMMOBILIZER AT THIS TIME. STATES, "I HAVE THAT EXACT kc6 SAME ONE AT HOME AND DON'T NEED ANOTHER ONE.". 11:01 Reassessment: PT STATES, "IF ALL THE DOCTOR IS WANTING ME TO DO IS PUT A KNEE BRACE ON, kc6 I CAN DO THAT HOME. I'VE HAD XRAYS DONE SEVERAL TIMES AND MY SON IS GETTING FUSSY SO I'D LIKE TO GO AHEAD LEAVE." DR. ZIMMERMAN NOTIFIED. Vital Signs: 09:59 BP 119 / 70; Pulse 80; Resp 16; Temp 98.3(O); Pulse Ox 99% on R/A; Weight 63.5 kg; hb Height 5 ft. 4 in. ; Pain 8/10; 10:55 BP 110 / 72; Pulse 79; Resp 16 S; Pulse Ox 99% on R/A; kc6 09:59 Body Mass Index 24.03 (63.50 kg, 162.56 cm) hb 09:59 Pain Scale: Adult hb ED Course: 09:50 Patient arrived in ED. im 09:51 Marvin Zimmerman MD is Attending Physician. ec2 09:52 Gisele Mcclendon RN is Primary Nurse. kc6 10:00 Triage completed. hb 10:01 Arm band placed on. hb 10:04 Patient has correct armband on for positive identification. Bed in low position. Call kc6 light in reach. Side rails up X 1. Adult w/ patient. Client placed on continuous cardiac and pulse oximetry monitoring. NIBP monitoring applied. 11:01 Frank Garcia MD is Referral Physician. ec2 11:06 Provided Education on: KNEE BRACE AND PAIN CONTROL. kc6 11:06 No provider procedures requiring assistance completed. Patient did not have IV access kc6 during this emergency room visit. Administered Medications: No medications were administered Medication: 11:06 VIS not applicable for this client. kc6 Outcome: 11:01 Discharge ordered by . ec2 11:06 Discharged to home ambulatory, kc6 11:06 Condition: good 11:06 Discharge instructions given to patient, Instructed on discharge instructions, follow up and referral plans. medication usage, Demonstrated understanding of instructions, follow-up care, medications, Prescriptions given X 1, 11:07 Patient left the ED. kc6 Signatures: Mishel Thibodeaux RN RN Gisele Mcclendon RN RN kc6 Mamie Brown Marvin Zimmerman MD MD ec2 Corrections: (The following items were deleted from the chart) 10:00 10:00 PMHx: depressive disorder; hb hb 10:57 10:55 Reassessment: Patient appears in no apparent distress at this time. No changes kc6 from previously documented assessment. Patient and/or family updated on plan of care and expected duration. Pain level reassessed. Patient is alert, oriented x 3, equal unlabored respirations, skin warm/dry/pink. kc6
[2023-12-27 11:14] VITALS: BP 110/72; TEMP 98.3; O2SAT 99
== END 2023-12-27 11:07 | disposition home or self-care (01) ==
LOC: ER 09:46
DX: M25.562 Pain in left knee (principal); Z88.5 Allergy status to narcotic agent; Z88.8 Allergy status to other drugs, medicaments and biological substances
CPT/HCPCS: 99283

== ENCOUNTER 2024-02-08 09:25 | Emergency (ER) | payer OTHER ==
--- OUTSIDE RECORDS SUMMARY | 2024-02-08 09:29 | XMS REPORT | Continuity of Care Document ---
Author Name Unknown Address [address] [place] [address] [facility] thconnect Address [address] [place] [address] Care Team Providers Care Waste Machine Tender Name Role Phone Andrealey Dwain Primary Care Physician [phone] KIARRA KURTZ Attending Clinician Unavailable Kiarra Kurtz MD Attending Clinician [phone] Gregorio Lambert MD Attending Clinician [phone] GREGORIO LAMBERT Attending Clinician Unavailabl e GREGORIO LAMBERT Attending Clinician Unavaileugene e Payers Payer Name Policy Type Policy Number Effective Date Expirati on Date Source Allergies, Adverse Reactions, Alerts Allergy Name Allergy Type Status Severity Reaction(s) Onset Date Inactive Date Treating Clinician Comments Source Trilepta l - Oral Propensi ty to adverse reaction to drug Active 2022-08 00:00: 00 Madhu Clifford NO KNOWN ALLERGIE S Drug Class Active [facility] Social History Social Habit Start Date Stop Date Quantity Comments Source History of tobacco use Cigarette Smoker [facility] Tobacco use and exposure 2023-10-17 00:00:00 2023-10-17 00:00:00 Smokeless tobacco non-user [facility] Alcohol intake 2023-10-17 00:00:00 2023-10-17 00:00:00 Ex-drinker (finding) [facility] History of Social function 2023-10-17 00:00:2023-10-17 00:00:00 [facility] Sex Assigned At 2000 00:00:00 2000 00:00:00 [facility] Smoking Status Start Date Stop Date Source Tobacco smoking consumption unknown [facility] Ex-smoker 2023-10-17 00:00:00 2023-10-17 00:00:00 [facility] Medications Ordered Medication Name Filled Medication Name Start Date Stop Date Current Medication? Ordering Clinician Indication Dosage Frequency Signature (SIG) Comments Components Source TAKE TWO (2) TABLET(S) BY MOUTH FOUR TIMES A DAY. 12-26 00:00: 00 Yes 500 Madhu Clifford TAKE 1 CAPSULE BY MOUTH ONCE DAILY 12-10 00:00: 00 Yes 40 Madhu Clifford TAKE 1 TAB EVERY 6 HOURS NEEDED FOR ANXIETY 12-10 00:00: 00 Yes 25 Madhu Clifford duloxetine 40 mg capsule,del ayed release 11-27 00:00: 00 Yes 1mg Madhu Clifford TAKE 1 CAPSULE BY MOUTH ONCE DAILY 11-11 00:00: 00 12-30 00:00 :00 No 40 Madhu Clifford TAKE 1 CAPSULE AT BEDTIME NIGHTLY. 10-30 00:00: 00 12-30 00:00 :00 No 1 Madhu Clifford TAKE 1 CAPSULE BY MOUTH ONCE DAILY 10-30 00:00: 00 12-30 00:00 :00 No 30 Madhu Clifford TAKE 1 CAPSULE AT BEDTIME NIGHTLY. 2-15 00:00: 00 12-30 00:00 :00 No 1 Madhu Clifford TAKE 1 CAPSULE BY MOUTH ONCE DAILY 15 00:00: 00 12-30 00:00 :00 No 30 Madhu Clifford TAKE 1 CAPSULE BY MOUTH ONCE DAILY 09-18 00:00: 00 12-30 00:00 :00 No 30 Madhu Clifford TAKE 1 CAPSULE AT BEDTIME NIGHTLY. 09-18 00:00: 00 12-30 00:00 :00 No 1 Madhu Clifford diclofenac 75 mg EC tablet -04 00:00: 00 Yes [id number] 75mg Take 1 tablet by mouth in the morning and 1 tablet in the evening. Take with meals. [facility] TAKE ONE (1) TABLET(S) BY MOUTH TWICE A DAY IN THE MORNING AND IN THE EVENING WITH MEALS. 08-22 00:00: 00 Yes Madhu Clifford TAKE 1 CAPSULE AT BEDTIME NIGHTLY. 08-21 00:00: 00 12-30 00:00 :00 No 1 Madhu Clifford TAKE 1 CAPSULE BY MOUTH DAILY 08-21 00:00: 00 12-30 00:00 :00 No 20 Madhu Clifford TAKE 1 CAPSULE BY MOUTH DAILY 2022-08 00:00: 00 12-30 00:00 :00 No 20 Madhu Clifford TAKE 1 CAPSULE AT BEDTIME NIGHTLY. 2022-08 00:00: 00 12-30 00:00 :00 No 1 Madhu Clifford TAKE ONE (1) CAPSULE(S) BY MOUTH ONCE A DAY. 04-02 00:00: 00 12-30 00:00 :00 No Madhu Clifford TAKE ONE (1) CAPSULE(S) BY MOUTH THREE TIMES A DAY. 03-15 00:00: 00 Yes Madhu Clifford TAKE TWO (2) TABLETS BY MOUTH ONCE DAILY THE FIRST 5 DAYS, THEN 1 TAB BY MOUTH ONCE DAILY THE LAST 5 DAYS. 03-15 00:00: 00 Yes Madhu Clifford PRAZOSIN HCL 1MG 03-11 00:00: 00 12-30 00:00 :00 No 1000 Madhu Clifford DULOXETINE 20MG DR 03-11 00:00: 00 12-30 00:00 :00 No Madhu Clifford HYDROCORTIS O 2.5%RECT CRE 03-08 00:00: 00 Yes 2500 Madhu Clifford APPLY TO THE RECTUM ONCE DAILY NEEDED. 03-05 00:00: 00 Yes Madhu Clifford TAKE ONE (1) TABLET(S) BY MOUTH TWICE A DAY WITH FOOD. 01-19 00:00: 00 Yes Madhu Clifford TAKE ONE (1) TABLET(S) BY MOUTH EVERY EIGHT HOURS NEEDED. 01-19 00:00: 00 Yes Madhu Clifford TAKE ONE (1) CAPSULE(S) BY MOUTH EVERY TWELVE HOURS FOR EXUDATIVE PHARYNGITIS . 11-15 00:00: 00 Yes Madhu Clifford TAKE ONE (1) TABLET(S) BY MOUTH EVERY SIX HOURS NEEDED FOR NAUSEA. 10-22 00:00: 00 Yes Madhu Clifford TAKE ONE (1) TABLET(S) BY MOUTH FOUR TIMES A DAY FOR ABDOMINAL PAIN OR CRAMPING. 10-22 00:00: 00 Yes Madhu Clifford Vital Signs Vital Name Observation Time Observation Value Comments S emilia Body height 2023-10-17 19:06:00 162.6 cm [facility] Body height 2023-08-22 18:04:00 162.6 cm [facility] Body weight 2023-08-22 18:04:00 65.772 kg [facility] BMI 2023-08-22 18:04:00 24.89 kg/m2 [facility] BP Systolic 2023-08-05 10:45:00 126 mm[Hg] Moses Clifford BP Diastolic 2023-08-05 10:45:00 86 mm[Hg] Vitor phen Kristin Clifford Weight Measured 2023-08-05 10:45:00 146.80 pounds Madhu Clifford Height Measured 2023-08-05 10:45:00 63.00 inches Madhu Clifford Body Temperature 2023-08-05 10:45:00 98.40 degrees Madhu Clifford Heart Rate 2023-08-05 10:45:00 107.00 /min Moses Clifford Respiratory Rate 2023-08-05 10:45:00 17.00 /min Madhu Clifford BP Systolic 2023-07-31 16:56:00 120 mm[Hg] Step hen Kristin Clifford BP Diastolic 2023-07-31 16:56:00 77 mm[Hg] Vitor phen Kristin Clifford Weight Measured 2023-07-31 16:56:00 147.20 pounds Madhu Clifford Height Measured 2023-07-31 16:56:00 63.00 inches Madhu Clifford Body Temperature 2023-07-31 16:56:00 98.20 degrees Madhu Clifford Heart Rate 2023-07-31 16:56:00 91.00 /min Janeth Clifford Respiratory Rate 2023-07-31 16:56:00 18.00 /min Madhu Clifford Encounters Start Date/Time End Date/Time Encounter Type Admission Type Attending [facility] Care Department Encounter ID Source 2024-02-05 09:27:11 2024-02-05 09:27:11 Outpatient SFA SFA [id number] Madhu Clifford 2024-02-04 10:02:11 2024-02-04 10:02:11 Outpatient SFA SFA [id number] Madhu Clifford 2024-01-29 09:37:46 2024-01-29 09:37:46 Outpatient SFA SFA [id number] Madhu Clifford 2024-01-21 10:12:40 2024-01-21 10:12:40 Outpatient SFA SFA [id number] Madhu Clifford 2024-01-14 10:03:41 2024-01-14 10:03:41 Outpatient SFA SFA [id number] Madhu Clifford 2024-01-01 09:34:05 2024-01-01 09:34:05 Outpatient SFA SFA [id number] Madhu Clifford 2023-12-31 10:06:20 2023-12-31 10:06:20 Outpatient SFA SFA [id number] Madhu Clifford 2023-12-24 10:02:20 2023-12-24 10:02:20 Outpatient SFA SFA [id number] Madhu Clifford 2023-12-19 15:36:54 2023-12-19 15:36:54 Outpatient SFA SFA [id number] Madhu Clifford 2023-12-17 10:02:21 2023-12-17 10:02:21 Outpatient SFA SFA [id number] Madhu Clifford 2023-12-12 12:58:56 2023-12-12 12:58:56 Outpatient SFA SFA [id number] Madhu Clifford 2023-12-11 14:26:48 2023-12-11 14:26:48 Outpatient SFA SFA [id number] Madhu Clifford 2023-12-04 11:19:44 2023-12-04 11:19:44 Outpatient SFA SFA [id number] Madhu Clifford 2023-12-03 10:06:00 2023-12-03 10:06:00 Outpatient SFA SFA [id number] Madhu Clifford 2023-11-19 10:03:45 2023-11-19 10:03:45 Outpatient SFA SFA [id number] Madhu Clifford 2023-11-12 10:17:04 2023-11-12 10:17:04 Outpatient SFA SFA [id number] Madhu Clifford 2023-11-06 09:43:05 2023-11-06 09:43:05 Outpatient SFA SFA [id number] Madhu Clifford 2023-10-31 13:57:02 2023-10-31 13:57:02 Outpatient SFA SFA [id number] Madhu Clifford 2023-10-29 10:06:45 2023-10-29 10:06:45 Outpatient SFA SFA [id number] Madhu Clifford 2023-10-25 00:00:00 2023-10-25 00:00:00 Telephone AdKiarra linder [place] [id number] [facility] 2023-10-22 10:10:49 2023-10-22 10:10:49 Outpatient SFA SFA [id number] Madhu Clifford 2023-10-17 13:30:00 2023-10-17 13:49:57 Outpatient R KIARRA KURTZ [facility] [id number] [facility] 2023-10-17 13:30:00 2023-10-17 13:49:57 Office Visit AdTrish linderian [id number] [id number] [facility] 2023-10-15 10:09:39 2023-10-15 10:09:39 Outpatient SFA SFA [id number] Madhu Clifford 2023-10-10 09:53:42 2023-10-10 09:53:42 Outpatient SFA SFA [id number] Madhu Clifford 2023 10:18:33 2023 10:18:33 Outpatient SFA SFA [id number] Madhu Clifford 2023-10-03 16:47:39 2023-10-03 16:47:39 Outpatient SFA SFA [id number] Madhu Clifford 2023-10-01 10:03:39 2023-10-01 10:03:39 Outpatient SFA SFA [id number] Madhu Clifford 2023-09-18 15:55:24 2023-09-18 15:55:24 Outpatient SFA SFA [id number] Madhu Clifford 2023-09-17 10:05:10 2023-09-17 10:05:10 Outpatient SFA SFA [id number] Madhu Clifford 2023-09-12 07:59:20 2023-09-12 07:59:20 Outpatient SFA SFA [id number] Madhu Clifford 2023-08-22 12:04:19 2023-08-22 23:59:00 Hospital Encounter Gregorio Lambert [facility] [id number] [id number] [facility] 2023-08-22 11:45:00 2023-08-22 12:24:00 Office Visit Gregorio Lambert [facility] [id number] [id number] [id number] [facility] 2023-08-22 11:45:00 2023-08-22 12:24:00 Outpatient GREGORIO GARNER CRAIG [facility] [id number] [facility] 2023-08-07 09:24:01 2023-08-07 09:24:[address] [facility] [id number] Madhu Clifford 2023-08-05 10:42:31 2023-08-05 10:42:31 Outpatient [facility] [id number] Madhu Clifford 2023-07-31 16:32:39 2023-07-31 16:32:39 Outpatient [facility] [id number] Madhu Clifford 2023-07-31 00:00:00 2023-07-31 00:00:[address] [facility] [id number] Madhu Clifford Results Test Description Test Time Test Comments Results Result Co mments Source TSH, THIRD [id number] 05:14:45* Test Item Value Reference Range Interpretation Comme [facility] TSH, THIRD GENERATION (test code = 2821) 0.636 UIU/ML 0.400-4.100 UNLESS OTHERWISE INDICATED, ALL TESTING PERFORMED AT [facility] [address] [place] [address] PROJECT SUPERINTENDENT: KAILEY GRIMES M.D. CLIA NUMBER [id number] [facility]. [id number] COMPREHENSIVE METABOLIC [id number] 05:03:30* Test Item Value Reference Range Interpretation Comme nts GLUCOSE (test code = 2217) 89 MG/DL 70-99 BUN (test code = 2208) 10 MG/DL 6-20 CREATININE (test code = 2214) 0.70 MG/DL 0.60-1.30 eGFR (2020 CKD-EPI) (test code = 71580) 125 ML/MIN/1.73 >60 CALC BUN/CREAT (test code = 2235) 14 RATIO 6-28 SODIUM (test code = 2231) 140 MEQ/L 133-146 POTASSIUM (test code = 2228) 4.5 MEQ/L 3.5-5.4 CHLORIDE (test code = 2215) 102 MEQ/L 95-107 CARBON DIOXIDE (test code = 2206) 24 MEQ/L 19-31 CALCIUM (test code = 2209) 10.1 MG/DL 8.5-10.5 PROTEIN, TOTAL (test code = 2228) 7.4 G/DL 6.1-8.3 ALBUMIN (test code = 2200) 4.7 G/DL 3.5-5.2 CALC GLOBULIN (test code = 0) 2.7 G/DL 1.9-3.7 CALC A/G RATIO (test code = 2233) 1.7 RATIO 1.0-2.6 BILIRUBIN, TOTAL (test code = 2206) 0.6 MG/DL <=1.2 ALKALINE PHOSPHATASE (test code = 2203) 64 U/L 38-117 AST (test code = 2217) 14 U/L 9-40 ALT (test code = 2218) 14 U/L 5-40 LIPID [id number] 05:03:30* Test Item Value Reference Range Interpretation Comme nts CHOLESTEROL (test code = 2209) 121 MG/DL <200 TRIGLYCERIDES (test code = 2231) 105 MG/DL <150 HDL CHOLESTEROL (test code = 2219) 47 MG/DL >39 CALC LDL CHOL (test code = 2236) 55 MG/DL <100 NOTE: CALCULATED LDL IS BASED ON JERRICA-GARCIA METHOD WHICHINCLUDES ADJUSTABLE TRIGLYCERIDE:VLDL CHOLESTEROL RATIO.THIS FACTOR VARIES BY MEASURED TRIGLYCERIDE AND NON-HDLCHOLESTEROL CONCENTRATIONS WITH INCREASED CALCULATED LDL SEENIN HIGHER TRIGLYCERIDE OR LOWER NON-HDL SPECIMENS. FOR MOREINFORMATION, SEE CLIENT ANNOUNCEMENT AT [email or web address] RISK RATIO LDL/HDL (test code = 2237) 1.17 RATIO <3.22 HEMOGLOBIN [id number] 03:12:43* Test Item Value Reference Range Interpretation Comme nts HEMOGLOBIN A1c (test code = 42198) 5.3 % 4.2-5.6 CBC W/AUTO DIFF WITH [id number] 02:48:06* Test Item Value Reference Range Interpretation [...] 0.00-0.10 ABS NUCLEATED RBCS (test code = 43686) 0.00 K/UL 0.00-0.11 CBC W/AUTO [id number] 00:00:00* Test Item Value Reference Range Interpretation Comme nts WBC (test code = 1001) 7.1 K/UL RBC (test code = 1002) 4.75 M/UL HEMOGLOBIN (test code = 1003) 14.2 G/DL HEMATOCRIT (test code = 1004) 42.7 % MCV (test code = 1005) 89.9 fL MCH (test code = 1006) 29.9 PG MCHC (test code = 1007) 33.3 G/DL RDW (test code = 1038) 11.8 % NEUTROPHILS (test code = 1008) 71.8 % LYMPHOCYTES (test code = 1010) 21.4 % MONOCYTES (test code = 1011) 6.0 % EOSINOPHILS (test code = 1012) 0.4 % BASOPHILS (test code = 1013) 0.3 % IMMATURE GRANULOCYTES (test code = 1036) 0.1 % NUCLEATED RBCS (test code = 1065) 0.0 /100WBC'S PLATELET COUNT (test code = 1015) 350 K/UL ABSOLUTE NEUTROPHILS (test c ode = 1066) 5.12 K/UL ABSOLUTE LYMPHOCYTES (test c ode = 1067) 1.53 K/UL ABSOLUTE MONOCYTES (test cod e = 1068) 0.43 K/UL ABSOLUTE EOSINOPHILS (test c ode = 1040) 0.03 K/UL ABSOLUTE BASOPHILS (test cod e = 1069) 0.02 K/UL ABS IMMATURE GRANULOCYTES (t est code = 1020) 0.01 K/UL ABS NUCLEATED RBCS (test cod e = 98540) 0.00 K/UL Madhu CliffordHEMOGLOBIN [id number] 00:00:00* Test Item Value Reference Range Interpretation Comme nts HEMOGLOBIN A1c (test code = 76355) 5.3 % Madhu CliffordLIPID [id number] 00:00:00* Test Item Value Reference Range Interpretation Comme nts CHOLESTEROL (test code = 2210) 121 MG/DL TRIGLYCERIDES (test code = 2232) 105 MG/DL HDL CHOLESTEROL (test code = 2220) 47 MG/DL CALC LDL CHOL (test code = 2237) 55 MG/DL RISK RATIO LDL/HDL (test cod e = 2238) 1.17 RATIO Madhu CliffordCOMPREHENSIVE METABOLIC [id number] 00:00:00* Test Item Value Reference Range Interpretation Comme nts GLUCOSE (test code = 2217) 89 MG/DL BUN (test code = 2208) 10 MG/DL CREATININE (test code = 2214) 0.70 MG/DL eGFR (2020 CKD-EPI) (test code = 79224) 125 ML/MIN/1.73 CALC BUN/CREAT (test code = 2235) 14 RATIO SODIUM (test code = 2231) 140 MEQ/L POTASSIUM (test code = 2228) 4.5 MEQ/L CHLORIDE (test code = 2215) 102 MEQ/L CARBON DIOXIDE (test code = 2206) 24 MEQ/L CALCIUM (test code = 2209) 10.1 MG/DL PROTEIN, TOTAL (test code = 2229) 7.4 G/DL ALBUMIN (test code = 2201) 4.7 G/DL CALC GLOBULIN (test code = 2240) 2.7 G/DL CALC A/G RATIO (test code = 2234) 1.7 RATIO BILIRUBIN, TOTAL (test code = 2207) 0.6 MG/DL ALKALINE PHOSPHATASE (test code = 2204) 64 U/L AST (test code = 2218) 14 U/L ALT (test code = 2219) 14 U/L Madhu CliffordVITAMIN D, 25 [id number] 00:00:00* Test Item Value Reference Range Interpretation Comme nts VITAMIN D, 25 OH (test code = 4958) 26 NG/ML Madhu CliffordTSH, THIRD [id number] 00:00:00* Test Item Value Reference Range Interpretation Comme nts TSH, THIRD GENERATION (test code = 2821) 0.636 UIU/ML Madhu Clifford Notes Date/Time Note Provider Source 2023-10-25 09:37:10 [id number]:37:10 Contacted patient regarding results and recommendations. Patient verbalized understanding.Wood Arciniega RN 10/25/2023 9:36 AM 99132-7Bdzfuesvv encounter BjboJA4703-13-11V91:37:15Telephone encounter NoteTXT1.2.840.629540.1.13.104.2.7. 2.194233|[id number] for patient sofj75200-9QybjILVNNQZZNNVVommprovz C-CDA narrative [id number] Collins RNUTMBUT - [address] Al[id number] 2RXFLZZVJWOSNSCOTTLUMAD0575-41-27L0 9:37:151.2.840.546969.1.72.3.15|1.2 .840.304482.1.13.104.2.7.2.727879_2 [id number] Wood Arciniega YOSVANY [facility] 2023-10-25 08:43:25 2255-03-06R27:43:25 Patient is calling back for results. 21511-9Emszisskb encounter LxjbQN7597-49-81Q84:43:49Telephone encounter NoteTXT1.2.840.473767.1.13.104.2.7. 2.407829|[id number] for patient xfys79350-3YxnyWFTLTFIESAQSufunsnkj C-CDA narrative [id number] [address] Ks[id number] 4WXIOTRAVCPEPBMOUQSYSHF9894-23-55N4 8:43:491.2.840.108639.1.72.3.15|1.2 .840.967298.1.13.104.2.7.2.727879_2 [id number] Maria E Pradhan Willard [facility] 2023-07-31 00:00:00 xLSmKaj6lJ9iA4gZTpnXfSYJZKM1uWS2NJX LZYCjOIVKC38aA//ImER8U/fntVHu6228-4 10-01T00:00:00+ ---+ +| Plan Activity | Plan Date |+ +======== ====+| self referral to OBGYN | 2023-07-31 || RTC for WWE. | |+ +-------- ----+| referral BH | 2023-07-31 |+ +-------- ----+| referral BH | 2023-07-31 |+ +-------- ----+| referral BH | 2023-07-31 |+ +-------- ----+| referral ortho | 2023-07-31 |+ +-------- ----+90034-9Ruuw of TreatmentLNCARE PLANTXTSFA|[id number]|[id number] for patient [id number] Section NarrativeNARRATIVEFormatted C-CDA narrative textSFAStmary KristinMarisol [facility]2024-05-16T00:00:00 Madhu FMarisol [facility]"
[2024-02-08] MEDS ORDERED: HYDROCODONE/APAP 5/325 MG TAB ONE (10:10)
--- NOTE | 2024-02-08 11:47 | RAD REPORT ---
EXAM DESCRIPTION: RAD - Shoulder Left 2 View - 02/08/2024 10:14 am CLINICAL HISTORY: PAIN COMPARISON: No comparisons TECHNIQUE: Internal and external rotation views of the left shoulder were obtained. FINDINGS: There is no fracture or dislocation. AC joint is normal in appearance. No acute or suspici ous findings. IMPRESSION: Negative two-view left shoulder examination.
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
--- NOTE | 2024-02-08 11:49 | EDPHYS ---
Physician Documentation [facility] Name: April Sharpe Age: 23 yrs Sex: Female : 2000 Arrival Date: 02/08/2024 Time: 09:25 Bed 11 Private MD: ED Physician Toni Bazzi HPI: 02/07 10:07 This 23 yrs old Female presents to ER via Ambulatory with complaints of Shoulder sb4 Injury, Arm Injury. 10:07 The patient or guardian complains of an injury, pain, that is acute. left shoulder. sb4 10:07 Patient states she was walking her dog this morning when a cat tried to attack it. She sb4 states that her dog pulled her causing pain in her left shoulder. She states that now every time she moves that she feels pain in her posterior shoulder with radiation down her left arm. Historical: - Allergies: 09:48 Toradol; db 09:48 Trileptal; db - Home Meds: 09:48 duloxetine 30 mg Oral capsule daily [Active]; prazosin 1 mg Oral capsule daily db [Active]; Buspirone Oral [Active]; - PMHx: 09:48 Anxiety; headache; Bipolar disorder; nightmares; PTSD; db - PSHx: 09:48 right ovarian repair; Adenoid excision; Tonsillectomy; db - Immunization history:: Adult Immunizations unknown. - Infectious Disease History:: Denies. - Social history:: Smoking status: Reported history of juuling and/or vaping. ROS: 10:07 Constitutional: Negative for fever, chills, and weight loss, sb4 10:07 MS/extremity: Positive for injury or acute deformity, pain, of the left shoulder, 10:07 All other systems are negative, Exam: 10:07 Constitutional: This is a well developed, well nourished patient who is awake, alert, sb4 and in no acute distress. Head/Face: Normocephalic, atraumatic. Eyes: Extra-ocular motions intact. Periorbital areas with no swelling, redness, or edema. ENT: Mucous membranes moist. 10:07 Musculoskeletal/extremity: ROM: limited active range of motion due to pain, limited passive range of motion due to pain, in the left arm, Circulation is intact in all extremities. Pulses: are normal with no appreciated deficits, Perfusion: the patient is normally perfused throughout, Perfusion: the extremity is normally perfused throughout, Sensation intact. Vital Signs: 09:46 BP 119 / 72; Pulse 95; Resp 18; Temp 98.4; Pulse Ox 99% ; Weight 63.5 kg; Height 5 ft. db 4 in. ; 09:46 Body Mass Index 24.03 (63.50 kg, 162.56 cm) db MDM: 09:32 Patient medically screened. sb4 10:34 Independent interpretation of the following test(s) in the Emergency Department X-Ray: sb4 My interpretation is my interpretation of the left shoulder xray images are no acute fracture or dislocation. 11:45 Data reviewed: vital signs, nurses notes, radiologic studies, and as a result, I will sb4 discharge patient. Counseling: I had a detailed discussion with the patient and/or guardian regarding the historical points, exam findings, and any diagnostic results supporting the discharge/admit diagnosis, radiology results, to return to the emergency department if symptoms worsen or persist or if there are any questions or concerns that arise at home. 02/07 09:57 Order name: Shoulder Left (2 View) XRAY; Complete Time: 11:48 sb4 02/07 09:57 Order name: Shoulder Immobilizer; Complete Time: 10:15 sb4 Administered Medications: 10:15 Drug: HYDROcodone-acetaminophen PO 5 mg-325 mg 1 tabs PO once Route: PO; hb 11:10 Follow up: Response: No adverse reaction hb Disposition: 14:39 Co-signature as Attending Physician, Toni Bazzi MD I agree with the assessment and rt plan of care. I reviewed the patient's care provided by the Advanced Practice Provider and agree with the diagnosis and treatment plan. Disposition Summary: 02/08/24 11:49 Discharge Ordered Notes: Location: Home sb4 Problem: new sb4 Symptoms: have improved sb4 Condition: Stable sb4 Diagnosis - Other sprain of left shoulder joint sb4 Followup: sb4 - With: Cruz Johnson MD - When: As needed - Reason: Further diagnostic work-up Discharge Instructions: - Discharge Summary Sheet sb4 - Shoulder Sprain sb4 Forms: - Patient Portal Instructions sb4 - Leadership Thank You Letter sb4 Signatures: Dispatcher [facility] Mishel Sierra RN RN hb Sophie Zamora RN RN db Rachel Stephenson PA-C PAJenniferC sb4 Toni Bazzi MD MD rt Corrections: (The following items were deleted from the chart) 10:08 10:07 Context: The problem was sustained outdoors, resulted from sb4 sb4
[2024-02-08 12:24] VITALS: BP 119/72; TEMP 98.4; O2SAT 99
== END 2024-02-08 12:05 | disposition home or self-care (01) ==
LOC: ER 09:25
DX: S43.492A Other sprain of left shoulder joint, initial encounter (principal)
CPT/HCPCS: 99283